=== PATIENT | female | born 1980 | race Caucasian/White ===

== ENCOUNTER 2017-09-17 12:34 | Emergency (ER) | payer SELFPAY ==
[~2017-09-17] VITALS: Ht 160 cm; Wt 90.7 kg
[~2017-09-17 12:34] MED LIST: METO10TA81 PO
[2017-09-17] MEDS ORDERED: predniSONE 20 MG TABLET PO ONE (13:00)
[2017-09-17 13:10] VITALS: BP 166/92
--- NOTE | 2017-09-17 13:33 | PHYS DOC ---
Past Medical History Past Medical History: Asthma, Other Additional Past Medical Histor: SANDY CECIL SYNDROME Past Surgical History: Cholecystectomy, Hysterectomy, Tonsillectomy, Tubal ligation, Other Additional Past Surgical Histo: BIOPSY ON THROAT, LIPROSCOPYX2, HERNIA SURGERY AND WISDOM TEETH EXTRACTED Alcohol Use: None Drug Use: Marijuana Adult General Chief Complaint Chief Complaint: SHOULDER INJURY HPI HPI 37-year-old female presents to ER for complaints of right shoulder pain for the past 2 days denies any recent injury. 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 Patient reports she is left-handed but does carry platters on her right arm as well. Patient reports she's been using ice pack to right shoulder and took ibuprofen about 4 AM this morning otherwise has taken no other [id number] medications. Denies any chest pain, shortness of air, cough, or fever or chills. She reports right shoulder pain increases with any type of palpation of joint or repositioning of the right upper extremity. 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 Review of Systems Review of Systems Constitutional: Denies fever or chills [] Eyes: Denies change in visual acuity, redness, or eye pain [] HENT: Denies nasal congestion or sore throat [] Respiratory: Denies cough or shortness of breath [] Cardiovascular: Denies chest pain or palpitations GI: Denies abdominal pain, nausea, vomiting, bloody stools or diarrhea [] : Denies dysuria or hematuria [] Musculoskeletal: Denies back or neck pain. Reports right shoulder pain denying any pain radiating into distal right arm or back/neck/chest Integument: Denies rash or skin lesions [] Neurologic: Denies headache, focal weakness or sensory changes [] All other systems were reviewed and found to be within normal limits, except as documented in this note. Current Medications Current Medications Current Medications Medications (Trade) Dose Ordered Sig/Dontae Start Time Stop Time Status Last Admin Dose Admin Prednisone (Prednisone) 40 mg 1X ONCE 09/17/17 13:00 09/17/17 13:02 DC 09/17/17 13:09 40 MG Allergies Allergies Allergies Coded Allergies Type Severity Reaction Last Updated Verified Sulfa (Sulfonamide Antibiotics) Allergy Intermediate VOMIT 01/10/16 Yes ascorbic acid Allergy Intermediate SWELLING 01/10/16 Yes calamine Allergy Intermediate BURNING SKIN 01/10/16 Yes hydrochlorothiazide Allergy Intermediate ULCER IN THROAT 01/10/16 Yes menthol Allergy Intermediate BLISTERS 01/10/16 Yes polyethylene glycol 3350 Allergy Intermediate SWELLING 01/10/16 Yes potassium chloride Allergy Intermediate SWELLING 01/10/16 Yes prochlorperazine Allergy Intermediate ANXIETY 01/10/16 Yes rofecoxib Allergy Intermediate SWELL 01/10/16 Yes sodium chloride Allergy Intermediate SWELLING 01/10/16 Yes sodium sulfate Allergy Intermediate SWELLING 01/10/16 Yes Physical Exam Physical Exam Constitutional: Well developed, well nourished, no acute distress, non-toxic appearance. [] HENT: Normocephalic, no facial swelling Eyes: PERRLA, no nystagmus, conjunctiva normal, no discharge. [] Neck: Normal range of motion, no tenderness, supple, no gross adenopathy Cardiovascular:Heart rate regular rhythm, no murmur [] Lungs & Thorax: Bilateral breath sounds clear to auscultation. Respirations equal and nonlabored. No chest wall tenderness Abdomen: Bowel sounds normal, soft, no tenderness, no masses, no pulsatile masses. [] Skin: Warm, dry, no erythema, no rash. [] Back: No tenderness, full ROM Extremities: no cyanosis, no clubbing, no edema, cap refill brisk. Tender to palp. rt lateral shoulder- focal on joint with no deformity/crepitus or visible injury- pt able to perform adduction but has decreased abduction w/increased pain with ROM of rt shoulder Neurologic: Alert and oriented X 3, normal motor function, normal sensory function, no focal deficits noted. [] Psychologic: Affect normal, judgement normal, mood normal. [] Current Patient Data Vital Signs Vital Signs Date Time Temp Pulse Resp B/P (MAP) Pulse Ox O2 Delivery O2 Flow Rate FiO2 09/17/17 13:10 166/92 (116) 09/17/17 12:41 97.4 77 16 100 Room Air 97.4 EKG EKG [] Radiology/Procedures Radiology/Procedures [] Course & Med Decision Making Course & Med Decision Making Imaging studies reviewed. (See chart for details) Chest x-ray results with the patient with no acute findings noted. Patient reports she's had minimal relief and right shoulder pain following dose of prednisone while in the ER. Discussed plans for sling to right upper extremity and if symptoms persist patient to follow up with orthopedic doctor for further evaluation. Pt will be provided with Rx for Prednisone for next 4 days and advised on use of OTC sports cream, ibuprofen and/or tylenol, sling use. Pt in no visible distress at time of discharge discussion. Pt did request stronger pain med. and work note- discuss use of anti-inflammatory meds and will provide note for tomorrow. Discharge instructions discussed and education provided on signs and symptoms to return to ER for. [] Dragon Disclaimer Dragon Disclaimer This electronic medical record was generated, in whole or in part, using a voice recognition dictation system. Departure Departure Impression: Primary Impression: Sprain of shoulder, left Disposition: 01 HOME, SELF-CARE Condition: STABLE Referrals: ELIDA DUPREE MD (PCP) Patient Instructions: Arm Sling Use-Brief, Shoulder Sprain Additional Instructions: If shoulder pain continues you should follow-up with orthopedic doctor for further care/exam. Ice to affected area every 3-4 hours as needed. Tylenol and/or ibuprofen as needed for additional pain control. Scripts Prednisone (PREDNISONE) 50 Mg Tablet 40 MG PO DAILY, #4 TAB 0 Refills Start Rx on 09/18/17 as initial dose given in ER Prov: JOSELITO GILL APRN 09/17/17 JOSELITO GILL APRN Sep 17, 2017 13:33
--- NOTE | 2017-09-17 13:47 | RAD ---
History: Right shoulder pain. Comparison: None. Findings: AP external rotation, AP internal rotation, and scapular Y view of the right shoulder. No acute fracture or dislocation is identified. No significant degeneration is seen. Impression: No acute osseous traumatic injury identified. Electronically signed by: Devyn Valdez MD (09/17/2017 1:43 PM) [facility]
[2017-09-17] MEDS ORDERED: PRED50TA PO (14:13)
== END 2017-09-17 14:43 | disposition home or self-care (01) ==
LOC: ER 12:34
DX: S43.401A Unspecified sprain of right shoulder joint, initial encounter (principal); J45.909 Unspecified asthma, uncomplicated; Z90.89 Acquired absence of other organs; Z90.49 Acquired absence of other specified parts of digestive tract; Z90.710 Acquired absence of both cervix and uterus; Z88.2 Allergy status to sulfonamides; Z88.8 Allergy status to other drugs, medicaments and biological substances; X50.9XXA Other and unspecified overexertion or strenuous movements or postures, initial encounter; Y93.89 Activity, other specified; Y92.89 Other specified places as the place of occurrence of the external cause; Y99.8 Other external cause status
CPT/HCPCS: 73030; 99284; J7512; L4350